=== PATIENT | male | born 1940 | race Caucasian/White ===

== ENCOUNTER 2021-12-19 07:19 | Emergency (ER) | payer MEDICARE, SELFPAY ==
[2021-12-19] VITALS (7 sets, daily range): BP systolic 103–154; BP diastolic 58–83; PULSE 71–127; RESP 14–31; TEMP 36.8; O2SAT 95–99; BMI 26.6
--- NOTE | 2021-12-19 07:49 | DI.US.S_ITS ---
PROCEDURE: US SCROTUM INDICATIONS: SWOLLEN TESTICLE TECHNIQUE: Real-time scanning was performed of the scrotum and testicles, with image documentation. Color and pulse Doppler interrogation was performed of both testicles. COMPARISON: None. FINDINGS: Right: Testicle is normal in size at 4.4 x 3.2 x 2.2 cm, and homogenous in echotexture. Epididymis is normal in overall size and morphology. No significant hydrocele. No varicoceles. Overlying scrotal skin is normal in thickness. Left: Testicle is normal in size at 4.4 x 2.7 x 2.6 cm, and homogeneous in echotexture. Epididymis is normal in overall size and morphology. Large hydrocele. No varicoceles. Overlying scrotal skin is normal in thickness. Doppler: Color and pulse Doppler demonstrate normal and symmetric arterial flow in both testicles. No abnormality identified in the lower quadrants in the areas of pain. IMPRESSION: 1. Large left hydrocele. 2. No epididymoorchitis or torsion demonstrated. 3. No testicular mass. 4. No ascites in the lower abdomen. Dictated by: Markus Matt M.D. on 12/19/2021 at 8:34 Approved by: Markus Matt M.D. on 12/19/2021 at 8:37
--- NOTE | 2021-12-19 08:02 | PC.NURSE ---
dr. Palmer assessed patient's scrotum
--- NOTE | 2021-12-19 08:34 | ED_ITS ---
HPI - General Adult General Chief complaint: Abdominal Pain Stated complaint: Swollen testicle, abd pain x 4 weeks Time Seen by Provider: 12/19/21 07:49 Source: patient Mode of arrival: Family Vehicle History of Present Illness HPI narrative: Patient is an 81-year-old male. States he does not have a primary doctor. Has not seen a provider in many years. Takes no medications. Does have a history of atrial fibrillation. Is not on anticoagulation. Is here for evaluation approximately 6 weeks of left-sided testicular swelling and lower abdominal discomfort. The symptoms are new. No urinary symptoms. No change in bowel habits. No fevers. No chest pain. Has had shortness of breath for the past several weeks specifically with exertion but no chest pain with this. Came to the emergency department today because of the swelling and the abdominal discomfort. Related Data Home Medications Medication Instructions Recorded Confirmed ASCORBIC ACID (VITAMIN C) 1,000 mg PO QDAY #0 10/07/11 FOLIC ACID/VIT A/VIT B1/VIT 1 tab PO QDAY #0 10/07/11 (#MULTIVITAMIN) cholecalciferol (vitamin D3) 25 1,000 iu PO QDAY #0 10/07/11 mcg (1,000 unit) tablet (Vitamin D3) Previous Rx's Medication Instructions Recorded apixaban 5 mg (74 tabs) tablets in See Rx Instructions .ROUTE 12/19/21 a dose pack ([employer] DVT-PE Treat .COMPLEX #74 ea 30D Start) metoprolol tartrate 25 mg tablet 12.5 mg PO DAILY #30 tab 12/19/21 Allergies Allergy/AdvReac Type Severity Reaction Status Date / Time No Known Allergies Allergy Uncoded 12/19/21 07:49 Review of Systems Constitutional Constitutional: Denies fever(s) and Denies headache(s) ENT Ears, Nose, Mouth, and Throat: Denies headache(s) Cardiovascular Comments: No chest pain Respiratory Comments: Shortness of breath on exertion, no cough Gastrointestinal Gastrointestinal: Reports abdominal pain, Denies nausea and Denies vomiting Genitourinary Genitourinary: Reports system reviewed and no additional complaints, except as documented and Reports as per HPI Musculoskeletal Comments: No lower extremity swelling Integumentary/Breasts Skin/Breast: Reports system reviewed and no additional complaints, except as documented Neurologic Neurologic: Denies headache(s) Hematologic/Lymphatic On Anticoagulants: No Patient History Medical History Atrial fibrillation Social History Smoking Status: Former smoker Smoking Status: Former smoker alcohol intake frequency: 0-2 drinks per day Substance Use Type: does not use Exam Initial Vital Signs Initial Vital Signs: Vital Signs Pulse Rate 126 H 12/19/21 07:31 Respiratory Rate 24 12/19/21 07:31 Pulse Oximetry 98 12/19/21 07:31 HENMT Head: normal to inspection and normocephalic Resp Effort & Inspection: normal respiratory effort Auscultation: clear to auscultation bilaterally Cardio Rate: tachycardic Rhythm: abnormal rhythm GI Other: Circumcised, left hemiscrotum swollen without much discomfort. Testicles unremarkable. No hernia felt. Skin General: no rashes or lesions noted Neuro General: patient alert, patient awake and moves all extremities Extrem General: normal to inspection and capillary refill normal Psych Appearance: grossly normal and well kempt Scores CHADS-VASc Congestive heart failure: no Hypertension: no (Patient denies) Age 75 years or older: yes Diabetes mellitus: no Stroke, TIA, or TE: no Vascular disease: no Age 65 to 74 years: no Sex category (female): Male CHADS-VASc Score: 2 GCS Sarah coma scale eye opening: Spontaneous Sarah coma scale verbal response: Orientated Sarah coma scale motor response: Obey commands [place] coma scale total score: 15 Course Orders Ordered: ED Orders 12/19/21 07:41 EKG-12 Lead Stat 12/19/21 07:49 US scrotum Stat 12/19/21 08:20 Complete Blood Count AUTO DIFF Stat Comprehensive Metabolic Panel Stat Lipase Stat 12/19/21 09:10 EKG-12 Lead Stat Vital Signs Vital signs: Vital Signs - 8 hr 12/19/21 07:31 12/19/21 07:38 12/19/21 08:00 Temperature 98.3 F Pulse Rate 126 H 127 H 121 H Respiratory Rate 24 22 30 H Blood Pressure 154/83 H Pulse Oximetry 98 99 96 12/19/21 08:13 12/19/21 08:30 12/19/21 09:00 Temperature Pulse Rate 124 H 112 H 77 Respiratory Rate 23 31 H 28 H Blood Pressure 110/70 103/80 115/72 Pulse Oximetry 96 98 95 Medical Decision Making Lab Data Lab results reviewed: Yes I reviewed the patient's lab results. Result diagrams: 12/19/21 08:20 12/19/21 08:20 Labs: Lab Results 12/19/21 12/19/21 Range/Units 08:20 08:20 WBC 6.5 (4.5-11.0) X10^3/uL RBC 2.70 L (4.5-5.9) X10^6/uL Hgb 10.8 L (13.5-17.5) g/dL Hct 30.5 L (41-53) % MCV 113.0 H (80-100) fL MCH 39.9 H (26-34) PG MCHC 35.3 (30-36) % RDW 15.8 H (11.6-14.8) % Plt Count 279 (150-400) X10^3/uL Neut % (Auto) Not Reportable Lymph % (Auto) Not Reportable [place] % (Auto) Not Reportable Eos % (Auto) Not Reportable Baso % (Auto) Not Reportable Lymph # (Auto) Not Reportable [place] # (Auto) Not Reportable Baso # (Auto) Not Reportable Total Counted 100 Seg Neutrophils % 9.0 L (38-70) % Lymphocytes % (Manual) 81.0 H (25-45) % Atypical Lymphs % 1.0 H ( - 0) % Monocytes % (Manual) 9.0 (2-11) % Neutrophils # (Manual) 585 L (8867-2827) /uL RBC Morphology See below Anisocytosis 1+ H Macrocytosis 2+ H Sodium 140 (137-145) mmol/L Potassium 4.2 (3.4-5.1) mmol/L Chloride 110 H (98-107) mmol/L Carbon Dioxide 25 (22-32) mmol/L BUN 20 (9-20) mg/dL Creatinine 1.25 (0.66-1.25) mg/dL Estimated GFR 58 L (>60) mL/min BUN/Creatinine Ratio 16.0 (6-22) Glucose 111 H (80-110) mg/dL Calcium 8.2 L (8.4-10.2) mg/dL Total Bilirubin 0.8 (0.2-1.3) mg/dL AST 49 (17-59) IU/L ALT 23 (<50) IU/L Alkaline Phosphatase 62 (38-126) U/L Total Protein 6.7 (6.3-8.2) g/dL Albumin 3.5 (3.5-5.0) g/dL Globulin 3.2 (1.7-4.1) g/dL Albumin/Globulin Ratio 1.1 (1.0-2.8) Lipase 160 (23-300) U/L Imaging Data scrotal US: Radiologist's Impression: [address] [address] Ultrasound Report Signed Patient: Romel Mccarthy MR#: [id number] : 1940 Acct:[id number] Age/Sex: 81 / M Date of Service: 12/19/21 Loc: ED Accession Number: [id number] ?? Procedure: US scrotum Ordering Provider: Sagar Palmer D.O. PROCEDURE:? US SCROTUM ? INDICATIONS:? SWOLLEN TESTICLE ? TECHNIQUE:? Real-time scanning was performed of the scrotum and testicles, with image documentation.? Color and pulse Doppler interrogation was performed of both testicles.? ? COMPARISON:? None. ? FINDINGS:? ? Right:? Testicle is normal in size at 4.4 x 3.2 x 2.2 cm, and homogenous in echotexture.? Epididymis is normal in overall size and morphology.? No significant hydrocele.? No varicoceles.? Overlying scrotal skin is normal in thickness.? ? Left:? Testicle is normal in size at 4.4 x 2.7 x 2.6 cm, and homogeneous in echotexture.? Epididymis is normal in overall size and morphology.? Large hydrocele.? No varicoceles.? Overlying scrotal skin is normal in thickness.? ? Doppler:? Color and pulse Doppler demonstrate normal and symmetric arterial flow in both testicles.? ? No abnormality identified in the lower quadrants in the areas of pain. ? IMPRESSION:? 1. Large left hydrocele. ? 2. No epididymoorchitis or torsion demonstrated. ? 3. No testicular mass. ? 4. No ascites in the lower abdomen.? ? ? Dictated by: Markus Matt M.D. on 12/19/2021 at 8:34 ? ? Approved by: Markus Matt M.D. on 12/19/2021 at 8:37? ECG Data Attestation: I personally reviewed and interpreted this ECG as follows: Interpretation: Atrial fibrillation Ventricular rate 136 Normal axis Normal QRS Normal QTC Nonspecific ST T wave changes Repeat EKG Sinus rhythm Ventricular rate is 70 Normal axis Normal QRS Normal QTC Occasional PAC Nonspecific ST T wave changes MDM Narrative Medical decision making narrative: Patient's presenting symptoms today have been going on for the past several weeks. He has a left-sided hydrocele. He also arrived a-fib with RVR that converted to sinus rhythm. Patient had a diagnosis of AFib in the past. He currently does not have a primary doctor. Takes no medications per his report. He has been on blood thinners in the past but not currently. I did discuss with him the findings of the ultrasound. Will have him follow-up with urology. We also discussed his atrial fibrillation. I suspect that this is paroxysmal AFib. He has also been complaining of shortness of breath on exertion and occasionally over the past several weeks which is most likely associated with this as well. Plan will be is to start him on a low-dose beta-manuel 1 time a day. His chads Vasc score is 2 and that is not counting the potential hypertension history. I discussed with him starting on anticoagulation again. We discussed the risks and benefits of this to include spontaneous bleeding ve rses risk of stroke. He expressed understanding of this and we will start him on anticoagulation. Was also able to contact the [address] primary care doctor's office and was able to schedule the patient a primary doctor's appointment with Dr. Mancera on FridayJanuary 11 at 1030. Patient was given this information. This is for him to establish a primary doctor. He was given return precautions. He expressed understanding and agreement. Discharge Plan Departure Patient Disposition: Home Clinical Impression: Hydrocele, A-fib Instructions: DI for Atrial Fibrillation, Hydrocele Activity Restrictions/Additional Instructions: The ultrasound today did show a left-sided hydrocele. I have given you the follow-up information for Dr. Gandhi. He has a urologist in the area that can fall you for this. You also had atrial fibrillation. Because of this we should start you on 2 medications. One of them is the blood thinner that we discussed. Please take them as directed. I was also able to schedule you a visit with a new primary doctor. This would be at the [address] This is located here at the hospital. The numbers [phone]. The appo intment is for Dr. Mancera. The appointment time is at 1030 however they would like you to arrive at 1000 hours. The date of the appointment is Tuesday January 11, 2022. Return to the emergency department for any new or worsening symptoms. The medications were transmitted to [facility] here in [place]. Prescriptions: New metoprolol tartrate 25 mg tablet 12.5 mg PO DAILY Qty: 30 0RF Eliquis DVT-PE Treat 30D Start 5 mg (74 tabs) tablets,dose pack See Rx Instructions .ROUTE .COMPLEX Qty: 74 0RF Rx Instructions: orally per package directions No Action FOLIC ACID/VIT A/VIT B1/VIT (#MULTIVITAMIN) 1 tab PO QDAY Qty: 0 0RF ASCORBIC ACID (VITAMIN C) 1,000 mg PO QDAY Qty: 0 0RF cholecalciferol (vitamin D3) [Vitamin D3] 1,000 UNIT tablet 1,000 iu PO QDAY Qty: 0 0RF
[2021-12-19 08:37] LABS: Hematocrit 30.5 % (41-53); Hemoglobin 10.8 g/dL (13.5-17.5); Mean Corpuscular HGB Conc 35.3 % (30-36); Mean Corpuscular Hemoglobin 39.9 PG (26-34); Platelet Count 279 X10^3/uL (150-400); Red Cell Distribution Width 15.8 % (11.6-14.8); White Blood Cell Count 6.5 X10^3/uL (4.5-11.0)
[2021-12-19 08:42] LABS: Alanine Aminotransferase 23 IU/L (<50); Albumin 3.5 g/dL (3.5-5.0); Albumin Globulin Ratio 1.1 (1.0-2.8); Alkaline Phosphatase 62 U/L (38-126); Aspartate Aminotransferase 49 IU/L (17-59); Bilirubin Total 0.8 mg/dL (0.2-1.3); Blood Urea Nitrogen 20 mg/dL (9-20); Calcium 8.2 mg/dL (8.4-10.2); Carbon Dioxide 25 mmol/L (22-32); Chloride 110 mmol/L (98-107); Estimated Glomerular Filt Rate 58 mL/min (>60); Globulin 3.2 g/dL (1.7-4.1); Glucose 111 mg/dL (80-110); HEMOLYSIS 78 (0-50); Lipase 160 U/L (23-300); Sodium 140 mmol/L (137-145); Total Protein 6.7 g/dL (6.3-8.2)
[2021-12-19 08:44] LABS: Potassium 4.2 mmol/L (3.4-5.1)
[2021-12-19 08:53] LABS: Add Manual Diff / Slide Review YES
[2021-12-19 08:56] LABS: Anisocytosis 1+; Macrocytosis 2+; Neutrophils Absolute Manual 585 /uL (3000-5900); Total Cells Counted 100
== END 2021-12-19 10:01 | disposition home or self-care (01) ==
PROVIDERS: Emergency Provider Emergency Medicine; Family Provider Internal Medicine Cardiovascular Disease
DX: N43.3 Hydrocele, unspecified (principal); I48.91 Unspecified atrial fibrillation
CPT/HCPCS: 36415; 76870; 80053; 83690; 85007; 85025; 93005; 99284

== ENCOUNTER → 2022-01-15 08:59 | Outpatient (CLI) | payer MEDICARE, SELFPAY ==
[2022-01-15 10:03] LABS: Hemoglobin 11.1 g/dL (13.5-17.5); Mean Corpuscular HGB Conc 34.6 % (30-36); Mean Corpuscular Hemoglobin 39.4 PG (26-34); Mean Corpuscular Volume 113.8 fL (80-100); Platelet Count 248 X10^3/uL (150-400); Red Blood Cell Count 2.81 X10^6/uL (4.5-5.9); Red Cell Distribution Width 17.4 % (11.6-14.8); White Blood Cell Count 13.3 X10^3/uL (4.5-11.0)
[2022-01-15 10:05] LABS: Add Manual Diff / Slide Review YES
[2022-01-15 10:20] LABS: Alanine Aminotransferase 23 IU/L (<50); Albumin 3.5 g/dL (3.5-5.0); Albumin Globulin Ratio 1.3 (1.0-2.8); Alkaline Phosphatase 79 U/L (38-126); Aspartate Aminotransferase 35 IU/L (17-59); BUN Creatinine Ratio 13.3 (6-22); Bilirubin Total 0.6 mg/dL (0.2-1.3); Blood Urea Nitrogen 16 mg/dL (9-20); Calcium 8.6 mg/dL (8.4-10.2); Carbon Dioxide 30 mmol/L (22-32); Chloride 107 mmol/L (98-107); Cholesterol 135 mg/dL (140-199); Estimated Glomerular Filt Rate > 60 mL/min (>60); Globulin 2.7 g/dL (1.7-4.1); Glucose 114 mg/dL (80-110); HDL Cholesterol 35 mg/dL (40-60); HEMOLYSIS < 15 (0-50); LDL Cholesterol Calculated 74 mg/dL (<100); Potassium 4.6 mmol/L (3.4-5.1); Sodium 139 mmol/L (137-145); Total Protein 6.2 g/dL (6.3-8.2); Triglycerides 128 mg/dL (35-150)
[2022-01-15 10:29] LABS: Macrocytosis 1+; Neutrophils Absolute Manual 931 /uL (3000-5900); Polychromasia 1+; Smudge Cells 1+; Total Cells Counted 100
[2022-01-15 11:03] LABS: Vitamin B12 949 pg/mL (239-931)
== END ==
PROVIDERS: Family Provider Internal Medicine Cardiovascular Disease; PCP Family Medicine; Referring Provider Family Medicine; Visit Provider Family Medicine
DX: D70.9 Neutropenia, unspecified (principal); Z12.5 Encounter for screening for malignant neoplasm of prostate; I48.91 Unspecified atrial fibrillation
CPT/HCPCS: 36415; 80053; 80061; 82607; 85007; 85025; G0103

== ENCOUNTER → 2022-02-13 13:37 | Outpatient (CLI) | payer MEDICARE, SELFPAY ==
--- NOTE | 2022-02-13 13:38 | DI.NM.S_ITS ---
PROCEDURE: NM TERRY PERF SPECT REST & STR Rest and exercise myocardial perfusion SPECT with gated imaging and ejection fraction RADIOPHARMACEUTICAL: 25.7 mCi Tc-99m sestamibi IV at rest and 24.4 mCi Tc-99m sestamibi IV at peak exercise. A 4-vla-msftqrni was performed. INDICATIONS: new afib TECHNIQUE: Radiopharmaceutical was injected at peak stress test, and also at rest. SPECT images were obtained. SPECT myocardial perfusion images were displayed in short axis, horizontal long axis, and vertical long axis views. Gated images were reviewed using [employer] software. COMPARISON: None. CARDIAC STRESS: A standard Danny treadmill exercise tolerance test was performed by the patient under the supervision of an attending staff. The patient exercised for 2 minutes and 59 seconds; 4.6 METS; functional aerobic impairment (LEXX) is 36%. Hemodynamic data: There is normal blood pressure and heart rate response to exercise stress. Patient achieved 111% of maximum predicted heart rate at peak exercise. Maximum blood pressure 150/68. Symptoms: Patient denied chest pain during exercise. EKG: No diagnostic EKG changes of ischemia; no ectopy. FINDINGS: Raw data: There is good myocardial labeling by radiotracer. No significant motion artifacts. Wywv-kn-blkhc ratio is 0.50 (normal is less than 0.38 for sestamibi tracer, and less than 0.50 for thallium tracer). Left ventricle function: Gated images demonstrate normal left ventricle wall thickening. No segmental wall motion abnormality. No transient ischemic dilation; TID is 0.83 (normal less than 1.3). The left ventricle resting end-diastolic volume is 89 mL. Left ventricle stress ejection fraction is 73%; normal values are above 45%. Myocardial perfusion: There is normal distribution of activity in the left and right ventricular myocardium. No fixed or reversible perfusion defects. IMPRESSION: No evidence of exercise-induced ischemia on ECG or SPECT imaging. Accelerated heart rate response to exercise. Normal blood pressure response to exercise. Reduced exercise capacity. Dictated by: Olga Ny D.O. on 02/14/2022 at 15:38 Approved by: Olga Ny D.O. on 02/14/2022 at 15:44
[2022-02-13 15:08] LABS: COVID19 -Nasal RAPID Negative (Negative)
--- NOTE | 2022-02-14 14:25 | PM.TREADMILL ---
Cardiac Stress Test Report Referral & Results Date Patient Seen: 02/14/22 Requesting provider: Demetrio Mancera Indication: Atrial fibrillation and dyspnea with exertion Rest ECG: Resting tachycardia likely secondary to lack of beta-manuel therapy (patient held the metoprolol as directed prior to this examination) Procedure Note: Today following both written and verbal informed consent the patient was exercised according to a standard Danny protocol patient went for a total of 2 minutes 59 seconds achieving a maximum heart rate of 154 maximum systolic blood pressure of 150. This is approximately 4.6 METS. Exercise was terminated at this point because of severe dyspnea. Patient was also given Cardiolite through a previously started Hep-Lock IV by the diagnostic imaging staff approximately 1 minute prior to the cessation of exercise. Patient was tachycardic to start and throughout. There are no ST-T segment changes. Patient remained in sinus rhythm with frequent PACs noted in recovery period only. Function aerobic impairment rates about 20% on the sedentary scale (estimated due to patient's age is off the scale) Impression: Tachycardia off his beta-manuel therapy No evidence of ischemia Please see perfusion imaging report for further details regarding possible cardiac ischemia Significant dyspnea and dyspnea beyond the perceived level of exertion in my opinion Please note: Actual ECG tracings can be found in the PACS system.
== END ==
PROVIDERS: Family Provider Internal Medicine Cardiovascular Disease; PCP Family Medicine; Referring Provider Family Medicine; Visit Provider Family Medicine
DX: I48.91 Unspecified atrial fibrillation (principal); D70.9 Neutropenia, unspecified; Z20.822 Contact with and (suspected) exposure to COVID-19; R00.0 Tachycardia, unspecified; R06.00 Dyspnea, unspecified
CPT/HCPCS: 78452; 87635; 93016; 93017; 93018; A9502

== ENCOUNTER → 2022-05-07 10:30 | Outpatient (CLI) | payer MEDICARE, SELFPAY ==
[2022-05-07 12:03] LABS: Hemoglobin 10.1 g/dL (13.5-17.5); Mean Corpuscular HGB Conc 34.9 % (30-36); Mean Corpuscular Hemoglobin 40.5 PG (26-34); Mean Corpuscular Volume 116.1 fL (80-100); Platelet Count 253 X10^3/uL (150-400); White Blood Cell Count 10.5 X10^3/uL (4.5-11.0)
[2022-05-07 12:04] LABS: Add Manual Diff / Slide Review YES
[2022-05-07 12:26] LABS: Alanine Aminotransferase 23 IU/L (<50); Albumin 3.5 g/dL (3.5-5.0); Albumin Globulin Ratio 1.1 (1.0-2.8); Alkaline Phosphatase 81 U/L (38-126); Aspartate Aminotransferase 37 IU/L (17-59); BUN Creatinine Ratio 13.8 (6-22); Bilirubin Total 0.7 mg/dL (0.2-1.3); Blood Urea Nitrogen 16 mg/dL (9-20); Calcium 8.3 mg/dL (8.4-10.2); Carbon Dioxide 24 mmol/L (22-32); Chloride 106 mmol/L (98-107); Cholesterol 124 mg/dL (140-199); Estimated Glomerular Filt Rate > 60 mL/min (>60); Globulin 3.1 g/dL (1.7-4.1); Glucose 110 mg/dL (80-110); HDL Cholesterol 31 mg/dL (40-60); HEMOLYSIS < 15 (0-50); LDL Cholesterol Calculated 66 mg/dL (<100); Lactate Dehydrogenase 731 U/L (313-618); Potassium 4.7 mmol/L (3.4-5.1); Sodium 140 mmol/L (137-145); Total Protein 6.6 g/dL (6.3-8.2); Triglycerides 133 mg/dL (35-150)
[2022-05-07 12:34] LABS: Neutrophils Absolute Manual 1050 /uL (3000-5900); Total Cells Counted 100
[2022-05-07 12:35] LABS: Macrocytosis 1+; Smudge Cells 1+
[2022-05-07 12:56] LABS: Thyroid Stimulating Hormone 1.84 uIU/mL (0.47-4.68)
== END ==
PROVIDERS: Internal Medicine Medical Oncology; Family Provider Internal Medicine Cardiovascular Disease; PCP Family Medicine; Referring Provider Internal Medicine Cardiovascular Disease; Visit Provider Internal Medicine Cardiovascular Disease
DX: I48.0 Paroxysmal atrial fibrillation (principal); E78.5 Hyperlipidemia, unspecified; D72.820 Lymphocytosis (symptomatic)
CPT/HCPCS: 36415; 80053; 80061; 83615; 83735; 84443; 85007; 85025

== ENCOUNTER → 2022-05-24 12:47 | Outpatient (CLI) | payer MEDICARE, SELFPAY ==
[2022-05-26 12:46] LABS: COVID19 -Nasal RAPID Negative (Negative)
== END ==
PROVIDERS: Family Provider Internal Medicine Cardiovascular Disease; PCP Family Medicine; Referring Provider Internal Medicine Cardiovascular Disease; Visit Provider Internal Medicine Cardiovascular Disease
DX: Z20.822 Contact with and (suspected) exposure to COVID-19 (principal)
CPT/HCPCS: 87635; C9803

== ENCOUNTER → 2022-05-24 12:49 | Outpatient (CLI) | payer MEDICARE, SELFPAY ==
--- NOTE | 2022-05-29 09:09 | PM.PFT.1 ---
Pulmonary Function Test Referral & Results Date Patient Seen: 05/24/22 Requesting provider: Osman Galo Results: The spirometry demonstrates an FVC of 3.46 L which is 100% of predicted. The FEV1 was measured at 2.53 L which is 104% of predicted. The FEV1/FVC ratio was 73 which is 103% of predicted. Following the administration of bronchodilator there was no appreciable change to above normal numbers. Lung volumes show an SVC of 3.66 L which is 93% of predicted. The diffusing capacity was measured at 11.64 which is 41% of predicted. No hemoglobin value was provided, so no correction for potential anemia could be made, if appropriate. The maximum voluntary ventilation was normal Interpretation: This study demonstrates normal spirometry. However there is a moderate reduction diffusing capacity suggesting significant disease at the capillary alveolar level Clinical correlation suggested
== END ==
PROVIDERS: Family Provider Internal Medicine Cardiovascular Disease; PCP Family Medicine; Referring Provider Internal Medicine Cardiovascular Disease; Visit Provider Internal Medicine Cardiovascular Disease
DX: J98.8 Other specified respiratory disorders (principal); R06.02 Shortness of breath; Z20.822 Contact with and (suspected) exposure to COVID-19; Z87.891 Personal history of nicotine dependence
CPT/HCPCS: 87635; 94060; 94726; 94729; C9803

== ENCOUNTER → 2022-06-03 09:06 | Outpatient (CLI) | payer MEDICARE, SELFPAY ==
--- NOTE | 2022-06-03 | DI.ECHO.S_ITS ---
[facility] +---------+ : : [address] : : : : [id number] : : : : Phone: [phone]+ Echocardiogram Report + + :Name: JOSEPH SNELL Study Date: 06/03/2022 Height: 67 in : :[facility] ReadingLocation: Weight: 185 lb : : Gender: Male BSA: 2.0 m2 : :: 1940 Age: 81 yrs BP: 143/82 mmHg: :Reason For Study: Atrial fibrillation : :Ordering Physician: NGOC, : :OTTO Performed By: Clem Mcdaniel : :Referring: OTTO GROSSMAN : + + Interpretation Summary The left ventricle is normal in size and wall thickness. Left ventricular ejection fraction is estimated to be 55 +/- 5%. Previous LV ejection fraction 55 to 60%. The right ventricle is normal in size and function. There is mild mitral regurgitation. There is mild tricuspid regurgitation. The right ventricular systolic pressure is estimated to be at least 29 mmHg based on an estimated right atrial pressure of 3 mm Hg. Procedure: A two-dimensional transthoracic echocardiogram with color flow and Doppler was performed. The study quality was technically adequate. Comparison is made with the echocardiogram of 10/08/2011. The patient was in normal sinus rhythm during the exam. The patient had occasional PACs during the exam. Left Ventricle: The left ventricle is normal in size and wall thickness. There is no thrombus. Left ventricular systolic function is normal. Left ventricular ejection fraction is estimated to be 55 +/- 5%. There are no focal wall motion abnormalities. LV dyssynchrony during PACs. Diastolic parameters suggest a relaxation abnormality of the left ventricle, consistent with probable normal filling pressures. Right Ventricle: The right ventricle is normal in size and function. Atria: Both atria are normal in size. There has been no significant change since the previous study. The interatrial septum grossly appears intact with no obvious evidence for an atrial septal defect. Mitral Valve: The mitral valve leaflets are slightly calcified. There is mild mitral regurgitation. Aortic Valve: The aortic valve is normal in structure and function. The aortic valve is trileaflet. There is no aortic valve stenosis. No aortic regurgitation is present. Tricuspid Valve: The tricuspid valve is normal. There is mild tricuspid regurgitation. The right ventricular systolic pressure is estimated to be at least 29 mmHg based on an estimated right atrial pressure of 3 mm Hg. Pulmonic Valve: The pulmonic valve is normal in structure and function. There is no pulmonic valvular regurgitation. Great Vessels: The aortic root is mildly dilated. The dimensions of the ascending aorta are normal. The IVC is of normal diameter and collapses greater than 50% with a sniff. This suggests a low right atrial pressure of 3 mm Hg. Pericardium/ Pleura There is no pericardial effusion. There is no pleural effusion. MMode/2D Measurements & Calculations LVIDd: 4.7 cm LVOT diam: 2.2 cm LVIDs: 3.3 cm Ao root diam: 4.1 cm FS: 29.8 % asc Aorta Diam: 3.4 cm IVSd: 1.1 cm LVPWd: 1.0 cm LV arita. diameter/BSA (cm/m^2): 2.4 LV sys. diameter/BSA (cm/m^2): 1.7 LA dimension: 4.1 cm RA long axis: 5.7 cm LA A2 area: 21.0 cm2 LA A4 area: 18.6 cm2 LA length (vol): 6.2 cm LA vol: 53.9 ml LA vol index: 27.6 ml/m2 LVLd ap2: 7.1 cm TAPSE_phl: 2.3 cm LVLs ap2: 6.8 cm Doppler Measurements & Calculations Ao V2 max: 142.0 cm/sec LVOT Max Isaiah: 95.3 cm/sec Ao V2 mean: 91.9 cm/sec LV V1 max P.6 mmHg Ao max P.0 mmHg LV V1 VTI: 20.2 cm Ao mean P.0 mmHg DARRELL(I,D): 2.6 cm2 Ao V2 VTI: 29.1 cm DARRELL(V,D): 2.6 cm2 sev ratio: 0.69 DARRELL indexed to BSA (cm^2/m^2): 1.3 MV E max isaiah: 49.7 cm/sec TR max isaiah: 256.0 cm/sec MV A max isaiah: 65.1 cm/sec TR max P.2 mmHg MV E/A: 0.76 Med Peak E' Isaiah: 5.3 cm/sec E/E' med: 9.3 Lat Peak E' Isaiah: 11.7 cm/sec E/E' lat: 4.2 E/e' average: 6.8 MV dec time: 0.42 sec SV(LVOT): 76.8 ml AV VR_phl: 0.67 DARRELL(VTI)/BSA_phl: 1.4 MV P1/2t-pr_phl: 124.0 msec Reading Physician:11:22 AM
== END ==
PROVIDERS: Family Provider Internal Medicine Cardiovascular Disease; PCP Family Medicine; Referring Provider Internal Medicine Cardiovascular Disease; Visit Provider Internal Medicine Cardiovascular Disease
DX: I77.810 Thoracic aortic ectasia (principal); I08.1 Rheumatic disorders of both mitral and tricuspid valves; I48.0 Paroxysmal atrial fibrillation; R06.02 Shortness of breath
CPT/HCPCS: 93306

== ENCOUNTER → 2022-06-14 12:57 | Outpatient (CLI) | payer MEDICARE, SELFPAY ==
[2022-06-14 13:30] LABS: COVID19 -Nasal RAPID Negative (Negative)
== END ==
PROVIDERS: Family Provider Internal Medicine Cardiovascular Disease; PCP Family Medicine; Visit Provider Specialist
DX: Z20.822 Contact with and (suspected) exposure to COVID-19 (principal)
CPT/HCPCS: 87635

== ENCOUNTER 2022-06-17 10:47 | Day surgery (SDC) | payer MEDICARE, SELFPAY ==
[2022-06-17] VITALS (10 sets, daily range): BP systolic 107–142; BP diastolic 59–82; PULSE 65–91; RESP 15–21; TEMP 36.4–37.1; O2SAT 92–99; BMI 29.0
--- NOTE | 2022-06-17 | PATH_ITS ---
[facility] Accession Number: [id number] No. of containers..01 Tissue . 01 Material submitted: . scrotum - LEFT SCROTAL WALL . 01 Diagnosis: Left Scrotal Wall, Excision: Seborrheic keratosis, pigmented and inflamed. MRV 06/20/2022 1155 Local . 01 Comment: The histologic material was reviewed with Dr. Jaycob Cortés, who concurs. . 01 Electronically signed: . Blank Hazel MD, Dermatopathologist NPI- [id number] . 01 Gross description: . The specimen is received in formalin labeled with the patient's name and left scrotal wall and consists of an unoriented ellipse of skin measuring 3.4 x 1.4 cm and excised to a depth of 0.4 cm. The cutaneous surface is significant for a raised verrucoid nodule measuring 1.5 cm in greatest dimension. The margin is inked blue and the specimen is serially sectioned and submitted entirely as follows: . A1: Tips. A2-A3: Remaining sequential slices. ([id number]) /[facility] 06/18/2022 1731 Local . 01 Pathologist provided ICD-10: L82.0 . 01 CPT . 120002 Specimen Comment: A courtesy copy of this report has been sent to [phone] Performed at: 01 [facility] [address] [place] [address], [place], [place] [id number] MD Bro Stanton MD Phone: [phone]
[2022-06-17] MEDS: SODIUM CHLORIDE 0.9% 1,000 ML 84 ML IV (11:51)
--- NOTE | 2022-06-17 13:05 | PM.PREOP ---
Pre-operative Note COVID-19 Criteria for continued procedure: Possibility delay results in more complex future surgery or treatment, Continuing or worsening of significant or severe pain, Delay expected to result in less-positive ultimate med/surg outcome and Non-surgical alternatives not available or appropriate per current SOC Interval Note History & Physical reviewed/Exam performed by Physician: Yes Changes to H&P: No
[2022-06-17] MEDS: CEFAZOLIN 2 GM/100 ML PREMIX 100 ML IV (13:14)
--- NOTE | 2022-06-17 13:41 | SUR.OPER ---
Supine on padded OR bed, head on pillow, arms secured on padded arm boards at <90 degrees abduction, legs uncrossed, safety belt at purcell , .
[2022-06-17] MEDS: BUPIVACAINE 0.25% (PF) VIAL 30 ML INJ (13:51)
[2022-06-17] MEDS: BUPIVACAINE LIPOSOME 266 MG/20 ML VIAL INJ (13:56)
--- NOTE | 2022-06-17 14:48 | PM.OP.1 ---
Operative Date/Time/Diagnoses Date of procedure: 06/17/22 Time of procedure: 14:48 Pre-op diagnosis: 1. Symptomatic left hydrocele. 2. 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 Post-op diagnosis: same Procedure & Clinicians Procedure: 1. Left hydrocelectomy. 2. Excision less scrotal wall/penile base neoplasm of uncertain behavior (2.5 x 2.0 by 2.5 cm). Same procedure as scheduled: Yes Indications: 1. Symptomatic left hydrocele. 2. Cutaneous scrotal wall mass-left. Surgeon: Nolan Gandhi Click Yes if Unassisted: Yes Anesthesia Type: General and Local (1.33% Exparel and 0.5% Marcaine with epinephrine.) Operative Notes Findings: 1. Normal left scrotal wall tissue planes. Light clear straw-colored fluid were then hydrocele sac. Small scrotal kathrin x2. 2. Variably and mixed hyperpigmented and verrucous neoplasm of uncertain behavior at superior left scrotal wall/penile base. Grossly confined to the dermis. Closure Type: primary Specimen(s): none sent (Left scrotal wall cutaneous mass.) Applied: drain(s) (Ten Kinyarwanda fenestrated left scrotal drain. Bulb self suction.) Estimated Blood Loss (mL): 5 Procedure in detail: The patient was positioned supine was administered general anesthesia. The lower abdomen, genitalia, and groin were then prepped and draped in sterile fashion. Local Marcaine with epinephrine anesthetic was used to infiltrate the midline scrotal raphae skin and subcutaneous dartos fascia. The needlepoint cautery was then used to make a midline incision down to the level of the tunica vaginalis. The entire fluid-filled structure was then brought out from the left hemiscrotum. The cord was further isolated above the hydrocele sac. The hydrocele sac was then divided in the midline anteriorly in his contents drained. The edges were then reflected posteriorly and a bookmobile driver closure was performed using a running horizontal mattress of 2-0 Monocryl usual fashion. The superior, and inferior extents of the bookmobile driver repair were secured posteriorly and posterior inferiorly to the subcutaneous tissue of the scrotal wall for fixation. Next Exparel anesthetic was used to infiltrate the left inferior lateral scrotal wall. A 10 Kinyarwanda fenestrated drain was then passed through the scrotal wall from inside out using an attached trocar. The proximal end was trimmed appropriately to length and then positioned in the left hemiscrotum appropriately. The drain was secured to the skin with 2-0 silk in usual fashion. Next the dartos fascia was closed the midline using a running 2-0 Monocryl. The skin was reapproximated using a running horizontal mattress of 4-0 Monocryl. The drain was then placed to bulb self suction. Next the skin and subcutaneous tissue surrounding and beneath the index left superior scrotal wall cutaneous lesion was infiltrated with 0.5% Marcaine with epinephrine. An elliptical excisional Island was then created through the dermis. At 1 in the separate skin edges were elevated and the cautery pen was used to dissect and resect the cutaneous Island from the subcutaneous tissues and fat that lay beneath. Hemostasis was obtained with electrocautery. The subcutaneous planes and space were then reapproximated using a 3 layer closure of 2-0 Monocryl. The cutaneous edges were then reapproximated using a running horizontal mattress of 4-0 Monocryl. Exparel was then used to infiltrate this excisional margins. The genitalia were then cleaned and dried and bacitracin ointment was applied to the incision lines and the drain site. A generous amount of fluff dressings were then applied to the scrotum and the patient was fitted with an athletic supporter. He was then awakened transferred to [facility] and then transported recovery in stable condition Complications: none Post-operative Condition: stable Disposition: PACU Plan for aftercare: 1. Discharge home.
--- NOTE | 2022-06-17 16:14 | SUR.PHASEII ---
Patient ambulated to wheelchair with steady gait. Tolerated fluids. Provided written/verbal/demonstration discharge instructions regarding aftercare to incision and LASHAWN drain. Patient stated understanding. Discharged patient by wheelchair to private vehicle in stable condition. See flowsheet for assessment details.
== END 2022-06-17 15:55 | disposition home or self-care (01) ==
PROVIDERS: Family Provider Internal Medicine Cardiovascular Disease; PCP Family Medicine; Referring Provider Specialist; Visit Provider Specialist
PROC: (CPT 55040; principal; 2022-06-17 12:15)
DX: N43.3 Hydrocele, unspecified (principal); L82.0 Inflamed seborrheic keratosis; J44.9 Chronic obstructive pulmonary disease, unspecified; I48.0 Paroxysmal atrial fibrillation; D64.9 Anemia, unspecified
CPT/HCPCS: 55040; 11426; 00920; 82962; C9290; J0690; J2405; J2765; J3010; J3490

== ENCOUNTER → 2023-02-21 12:36 | Outpatient (CLI) | payer MEDICARE, SELFPAY ==
--- NOTE | 2023-02-21 12:38 | DI.CT.S_ITS ---
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 Coronal and sagittal reformats were performed. For radiation dose reduction, the following was used: automated exposure control, adjustment of mA and/or kV according to patient size. COMPARISON: None. FINDINGS: Image quality: Excellent. CHEST: Lower Neck: No enlarged lymph nodes. Thyroid: Unremarkable. Axillae: No enlarged lymph nodes. Chest Wall: Unremarkable. Lungs and Airways: There is moderate no acute airspace opacities. centrilobular emphysema with an apical predominance. Pleura: No pneumothorax or pleural effusions. Heart: Heart size is normal. No pericardial effusion. Thoracic Vessels: The aorta and pulmonary arteries demonstrate normal size. Scattered atheromatous calcifications are present within the aortic arch. Mediastinum and Corina: No enlarged lymph nodes. Esophagus: No wall thickening. No hiatal hernia. ABDOMEN: Liver: Unremarkable. Gallbladder: Unremarkable. Biliary ducts: Unremarkable. Pancreas: Unremarkable. Spleen: Unremarkable. Adrenal Glands: Unremarkable. Kidneys and Ureters: Unremarkable. There are bilateral low-density cortical cysts noted. Stomach and Bowel: Stomach, small bowel loops, and colon are unremarkable. The appendix is thin walled and gas filled. There are scattered sigmoid diverticula. No evidence for diverticulitis. Peritoneum: No abnormal intraperitoneal fluid. No free air. Ventral Wall: There is a small fat containing umbilical hernia. Abdominal Nodes: No retroperitoneal or mesenteric adenopathy by size criteria. Vessels: Aorta and inferior vena cava are normal in size. There are scattered atheromatous calcifications throughout the aorta and iliac arteries bilaterally. PELVIS: Pelvic Organs: Unremarkable. Bladder: Unremarkable. Pelvic Nodes: No enlarged lymph nodes. Miscellaneous: There is a small fat containing left inguinal hernia. Bones: There is an incidentally noted segmentation anomaly at T8 with resultant mild kyphosis of the thoracic spine (series 5/image 47). There are 12 pairs of ribs noted. IMPRESSION: 1. No adenopathy within the chest, abdomen, or pelvis. 2. No acute intra-abdominal findings. Normal appendix. Diverticulosis. No acute diverticulitis. 3. 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 Dictated by: Kim Cuello M.D. on 02/21/2023 at 15:06 Approved by: Kim Cuello M.D. on 02/21/2023 at 15:22
== END ==
PROVIDERS: Family Provider Internal Medicine Cardiovascular Disease; PCP Family Medicine; Referring Provider Internal Medicine Hematology & Oncology; Visit Provider Internal Medicine Hematology & Oncology
DX: C91.Z0 Other lymphoid leukemia not having achieved remission (principal); K57.30 Diverticulosis of large intestine without perforation or abscess without bleeding; K42.9 Umbilical hernia without obstruction or gangrene; K40.90 Unilateral inguinal hernia, without obstruction or gangrene, not specified as recurrent
CPT/HCPCS: 71260; 74177